=== PATIENT | female | born 1965 | race Caucasian/White ===

== ENCOUNTER 2018-03-25 07:02 | Day surgery (SDC) | payer OTHER ==
[2018-03-22 12:19] VITALS: BMI 25.9
[2018-03-25 09:13] VITALS: TEMP 98
[2018-03-25 10:09] VITALS: BP 132/67; PULSE 62
--- NOTE | 2018-03-26 18:14 | PATH ---
Surgical Pathology Report Patient Name: DIANE SCHWARTZ [facility]. Rec. #: [id number] /Age/Gender: 1965 (Age: 52) / F Account: [id number] Location: U-ENDOSCOPY Taken: 03/25/2018 Received: 03/25/2018 Reported: 03/26/2018 Physicians: Akin Lomeli D.O. Specimen(s) Received A: BX 2ND PORTION DUODENUM AND BULB B: BX BODY AND ANGULARIS Clinical History GERD, screening Postoperative diagnosis: Gastritis Final Diagnosis A. SECOND PORTION DUODENUM AND BULB, BIOPSY: DUODENAL MUCOSA WITH FOCAL MILD CHRONIC DUODENITIS. B. BODY AND ANGULARIS, BIOPSY: GASTRIC MUCOSA WITH ACTIVE CHRONIC GASTRITIS. 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 Electronically Signed Dong Wilcox M.D. Gross Description A. Received in formalin, labeled "biopsy second portion of duodenum and bulb" are 3 yoder, irregular portions of soft tissue ranging from 0.2-0.3 cm. in greatest dimension. The specimens are submitted in toto in one cassette. B. Received in formalin, labeled "biopsy angularis and body" are 4 yoder, irregular portions of soft tissue ranging from 0.2-0.4 cm. in greatest dimension. The specimens are submitted in toto in one cassette. 03/25/201803/25/2018
== END 2018-03-25 10:27 | disposition home or self-care (01) ==
LOC: JASU-ENDO 07:02
PROVIDERS: ATTEND Internal Medicine Gastroenterology
PROC: 0DB98ZX Excision of Duodenum, Via Natural or Artificial Opening Endoscopic, Diagnostic (ICD-10-PCS; 2018-03-25)
PROC: 0DB68ZX Excision of Stomach, Via Natural or Artificial Opening Endoscopic, Diagnostic (ICD-10-PCS; 2018-03-25)
PROC: 0DJD8ZZ Inspection of Lower Intestinal Tract, Via Natural or Artificial Opening Endoscopic (ICD-10-PCS; principal; 2018-03-25 08:00)
DX: Z12.11 Encounter for screening for malignant neoplasm of colon (principal); K57.30 Diverticulosis of large intestine without perforation or abscess without bleeding; K64.8 Other hemorrhoids; K29.70 Gastritis, unspecified, without bleeding
CPT/HCPCS: 43239; G0121; 88305-TC; 88342-TC